=== PATIENT | female | born 1980 | race Caucasian/White ===

== ENCOUNTER 2021-07-25 10:13 | Emergency (ER) | payer SELFPAY ==
[~2021-07-25] VITALS: Ht 165.1 cm; Wt 72.5 kg
--- OUTSIDE RECORDS SUMMARY | 2021-07-25 10:25 | XMS REPORT | Continuity of Care Document ---
Author Author [facility] Organization [facility] Address [address] [place] [address] Phone Support Name Relationship Address Phone Felipe Perkins PRS [address] [place] [address] Adam Lukas PRS [address] [place] [address] Percy Gama PRS Unknown Unavailable TRIAGE, EMS PRS TO BE USED FOR WHEN PT AND EMS DOES ONLY TRIAGE, Unavailable Allergies, Adverse Reactions, Alerts Allergen Type Severity Reaction Last Updated Verified Status Sulfa (Sulfonamide Antibiotics) Allergy Unknown Anaphylaxis May 07, 2021 10:52pm Yes Active Medications Medication Status Dose Units Route Directions Qty Days Start Date End Date Instructions Venlafaxine Discontinued 75 MG PO DAILY August 31, 2020 9:47pm January 25, 2021 7:34pm Propranolol Active 60 MG PO DAILY AT BEDTIME August 31, 2020 9:47pm Hydroxyzine Hcl Discontinued 50 MG PO THREE TIMES A DAY August 31, 2020 9 :47pm April 10, 2021 12:10am Ferrous Sulfate Discontinued 325 MG PO TWICE A DAY August 31, 2020 9:47pm January 25, 2021 7:34pm Lisinopril Discontinued 40 MG PO DAILY September 01, 2020 12:13am April 10, 2021 12:10am Famotidine (Pepcid) 20 mg Tablet Active 20 MG PO TWICE A DAY May 07, 2021 11:1 8pm Ciprofloxacin Hcl Active 500 MG PO Q12H May 09, 2021 9:35am Potassium Chloride Active 20 MEQ PO TWICE A DAY 8 May 09, 2021 10:51am Diphenhydramine Hcl (Benadryl) 25 mg capsule Discontinued 25 MG PO THREE TIMES A DAY 30 7 February 28, 2020 12:31pm March 06, 2020 12:01am Prednisone Discontinued 20 MG PO DAILY 5 5 February 28, 2020 12:31pm March 04, 2020 12:01am Chlordiazepoxide Hcl Discontinued 0 MG PO Q6H November 06, 2020 1:38pm January 25, 2021 7:33pm Ondansetron Discontinued 4 MG PO Q8H 27 01November 06, 2020 1:38pm November 09, 2020 1:01am Cephalexin (Keflex) 500 mg capsule D iscontinued 500 MG PO TWICE A DAY November 06, 2020 1:45pm January 25, 2021 7:34pm Venlafaxine (Effexor Xr) 75 mg Capsule,Extended Releas e 24hr Active 75 MG PO DAILY January 25, 2021 7:32pm Problems Active Problems Medical Problem Onset Date Status Urinary tract infection Active Creatinine elevation A ctive Alcohol abuse Active Marijuana abuse Active Concussion Active Alcohol withdrawal Act kiersten Anxiety Active Rash Active Menstrual cramp Active Pancreatitis Active Prolonged QT interval Active Elevated liver enzymes Active Elevated liver enzymes Active Tobacco abuse Active Face lacerations Activ e Abnormal complete blood count Active Electrolyte abnormality Active Hypertension Active Fall Active Acute hyponatremia Act kiersten Inactive/Resolved Problems Medical Problem Onset Date Status Transaminitis Resolved Alcoholic intoxication Resolved Hypoglycemia Resolved Alcoholic ketoacidosis Resolved Hypomagnesemia Resolve d Procedures No procedure information available. Relevant Diagnostic Tests and/or Laboratory Data No known relevant diagnostic tests and/or laboratory data. Health Concerns Health Concerns may be documented in an alternate section. Advance Directives Advance Directive Response Recorded Date/Time Does the patient have an Advance Directive on File? No May 07, 2021 11:23pm Do you have a Medical Power of Survey Party Chief? N o May 07, 2021 11:23pm Do you have a Health Care Proxy? No May 07, 2021 11:23pm Do you have a Living Will? No May 07, 2021 11:23pm Chief Complaint and Reason for Visit Chief Complaint ems triage Encounters Encounter Location(s) Ar rival/Admit Date Discharge/Depart Date Provider(s) Departed Clinical [facility] July 01, 2021 12:58pm June 12:59pm TRIAGE EMS Assessments No Assessments Information Available Functional Status No Functional Status information available Goals Goals may be documented in an alternate section. 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 Home Phone: Payer Policy Id Coverage Id Subscriber's Name Subscriber Id Effective Date Expiration Date [place] [id number] Jessica Gaytan [id number] Self Pay Self N/A Social History Smoking Status Status Date of Observation Unknown if ever smoked May 08 10:44am Observation Status Observation Response Kee e of Response Smoking Status Every Day Smoker May 08, 2021 10:44am Exposure to Secondhand Smoke No May 08, 2021 10:44am Smoking packs per day 1 May 08, 2021 10:44am Alcohol Use None May 082020 10:44am Illicit Drug Use Yes [facility] 2020 10:44am Assigned Sex Female Vital Signs No vital signs result information available.
--- OUTSIDE RECORDS SUMMARY | 2021-07-25 10:25 | XMS REPORT | Continuity of Care Document ---
Author Author [facility] Organization [facility] Address [address] [place] [address] Phone Support Name Relationship Address Phone Felipe Perkins PRS [address] [place] [address] Adam Lukas PRS [address] [place] [address] Percy Gama PRS Unknown Unavailable TRIAGE, EMS [...] Do you have a Medical Power of Studio Assistant? N o May 07, 2021 11:23pm Do you have a Health Care Proxy? No May 07, 2021 11:23pm Do you have a Living Will? No May 07, 2021 11:23pm Chief Complaint and Reason for Visit Chief Complaint ems triage Encounters Encounter Location(s) Ar rival/Admit Date Discharge/Depart Date Provider(s) Departed Clinical [facility] July 01, 2021 12:58pm June 12:59pm TRIAGE EMS Assessments No Assessments Information Available Functional Status No Functional Status information available Goals Goals may be documented in an alternate section. 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 [address] [facility] [address] Contact Info. Home Phone: Payer Policy Id Coverage Id Subscriber's Name Subscriber Id Effective Date Expiration Date [place] [id number] Jessica Gaytan [id number] Self Pay Self N/A Social History Smoking [...] May 082020 10:44am Illicit Drug Use Yes [facility] 2020 10:44am Assigned Sex Female Vital Signs No vital signs result information available.
[2021-07-25] MEDS ORDERED: NS IV 500 ML 500 ML IV ONE (11:00)
--- NOTE | 2021-07-25 11:00 | ED General ---
General Chief Complaint: Substance Abuse Stated Complaint: DIARRHEA,SOB Source of Information: Patient, RN/MD (Dr. Jeaneth Miranda) Exam Limitations: No Limitations (EFFIE AQUINO) History of Present Illness Date Seen by Provider: Jul 25, 2021 Time Seen by Provider: 10:30 Initial Comments Patient to the ER by private conveyance from Dr. Miranda's clinic where she was attempting to perform outpatient alcohol withdrawal protocols and chief complaint of encephalopathy. Patient has complained of some generalized abdominal discomfort, distention, ascites, confusion for the past [address] Miranda noted that she is having difficulty staying awake and has a known history of alcoholic cirrhosis and spent some time at [facility] in [place] as well as [facility] in [place]. Patient denies any other significant medical history. She was tested recently and was negative for HIV and hepatitis. She has had some transaminases when she was seen 2 days ago on Friday by Dr. Miranda and was given a round of albumin because she felt that patient was intravascularly depleted as well she gave her some Lasix to try and help her remove some of her ascites. Patient states she does not take any laxatives such as lactulose or Xifaxan. She has been having diarrhea for the past 1 to 2 days. No fevers chills cough. She does feel like it is hard to get a deep breath in because of her abdominal distention. She was also given a dose of fluconazole for thrush and has been taking Ativan 2 mg every 4 hours [id number] with her last dose being sometime today. Patient is not oriented to date or time. She has had 1 dose of Covid vaccine Moderna in March. She also has a history of a gastric bypass in 1999. The patient states she relapsed drinking about 1 gallon of hard liquor every day approximately 2 months ago. The patient relates that she was told by her GI doctor at she had celiac's disease and he was investigating whether she had autoimmune hepatitis because every woman and her family her mom or grandmother etc. have all had autoimmune hepatitis. She was tested negative a few weeks ago for HIV and hepatitis. (EFFIE AQUINO) Allergies and Home Medications Allergies Coded Allergies: Sulfa (Sulfonamide Antibiotics) (Verified Allergy, Unknown, 07/25/21) Patient Home Medication List Home Medication List Reviewed: Yes (EFFIE AQUINO) Review of Systems Review of Systems Constitutional: No chills, No fever; malaise, weakness EENTM: No ear discharge, No ear pain Respiratory: No cough, No phlegm; short of breath Cardiovascular: No edema, No palpitations Gastrointestinal: No abdominal pain, No constipation, No diarrhea Genitourinary: No discharge, No dysuria Musculoskeletal: No back pain, No joint pain Skin: see HPI, change in color (Jaundice) (EFFIE AQUINO) All Other Systems Reviewed Negative Unless Noted: Yes (EFFIE AQUINO) Past Mrjgjqp-Vjwinx-Rorahj Hx Patient Social History Tobacco Use?: Yes Smoking Status: Current Everyday Smoker (Half pack per day) Smokeless Tobacco Frequency: Never a User Use of E-Cig and/or Vaping dev: No Substance use?: No Alcohol Use?: Yes Alcohol type: Hard Liquor Alcohol Frequency: Daily (EFFIE AQUINO) Physical Exam Vital Signs Vital Signs - First Documented 07/25/21 10:29 Temp 36.2 Pulse 110 Resp 20 B/P (MAP) 97/63 (74) Pulse Ox 100 O2 Delivery Room Air (ANGELA LESTER MD) Vital Signs Capillary Refill : (EFFIE AQUINO) Height, Weight, BMI Height: '" Weight: lbs. oz. kg; BMI Method: General Appearance: Chronically ill, Moderate Distress Eyes: Bilateral Eye Normal Inspection, Bilateral Eye PERRL, Bilateral Eye EOMI HEENT: PERRL/EOMI (Scleral icterus); No Pharynx Normal, No Moist Mucous Membranes Neck: Full Range of Motion, Non Tender Respiratory: Lungs Clear, Normal Breath Sounds, No Accessory Muscle Use, Respiratory Distress (Shallow, 25 to 30 breaths/min with oxygen saturations 100% on room air) Cardiovascular: Regular Rate, Rhythm, Normal Peripheral Pulses Gastrointestinal: Normal Bowel Sounds, Distended, Guarding (Right upper quadrant and epigastric region) Extremity: Normal Capillary Refill, Normal Inspection, No Pedal Edema Neurologic/Psychiatric: Alert, Oriented x3, No Motor/Sensory Deficits, Normal Mood/Affect Skin: Warm/Dry, Ecchymosis (Large ecchymoses over the left lower back and flank.), Jaundice (EFFIE AQUINO) Focused Exam Lactate Level 07/25/21 10:40: Lactic Acid Level 13.84*H 07/25/21 16:37: Lactic Acid Level 13.62*H (ANGELA LESTER MD) Lactic Acid Level Laboratory Tests Test 07/25/21 10:40 07/25/21 16:37 Lactic Acid Level 13.84 MMOL/L (0.50-2.00) *H 13.62 MMOL/L (0.50-2.00) *H (ANGELA LESTER MD) Progress/Results/Core Measures Suspected Sepsis SIRS Temperature: Pulse: Respiratory Rate: Laboratory Tests 07/25/21 10:40: White Blood Count 2.4L Blood Pressure / Mean: 07/25/21 10:40: Lactic Acid Level 13.84*H 07/25/21 16:37: Lactic Acid Level 13.62*H Laboratory Tests 07/25/21 10:40: Creatinine 1.39H, INR Comment 5.1*H, Platelet Count 17*L, Total Bilirubin 7.7H (EFFIE AQUINO) Results/Orders Lab Results Laboratory Tests Test 07/25/21 10:40 07/25/21 11:10 07/25/21 11:31 07/25/21 12:14 Range/Units White Blood Count 2.4 L 4.3-11.0 10^3/uL Red Blood Count 3.32 L 3.80-5.11 10^6/uL Hemoglobin 10.4 L 11.5-16.0 g/dL Hematocrit 30 L 35-52 % Mean Corpuscular Volume 92 80-99 fL Mean Corpuscular Hemoglobin 31 25-34 pg Mean Corpuscular Hemoglobin Concent 34 32-36 g/dL Red Cell Distribution Width 19.5 H 10.0-14.5 % Platelet Count 17 *L 130-400 10^3/uL Mean Platelet Volume 9.0-12.2 fL Immature Granulocyte % (Auto) 2 % Neutrophils (%) (Auto) 75 42-75 % Lymphocytes (%) (Auto) 13 12-44 % Monocytes (%) (Auto) 11 0-12 % Eosinophils (%) (Auto) 0 0-10 % Basophils (%) (Auto) 0 0-10 % Neutrophils # (Auto) 1.8 1.8-7.8 10^3/uL Lymphocytes # (Auto) 0.3 L 1.0-4.0 10^3/uL Monocytes # (Auto) 0.3 0.0-1.0 10^3/uL Eosinophils # (Auto) 0.0 0.0-0.3 10^3/uL Basophils # (Auto) 0.0 0.0-0.1 10^3/uL Immature Granulocyte # (Auto) 0.0 0.0-0.1 10^3/uL Percent Immature Platelet Fraction 8.1 H 0.0-7.6 % Prothrombin Time 47.2 *H 12.2-14.7 SEC INR Comment 5.1 *H 0.8-1.4 Activated Partial Thromboplast Time 50 H 24-35 SEC Sodium Level 136 135-145 MMOL/L Potassium Level 3.0 L 3.6-5.0 MMOL/L Chloride Level 100 98-107 MMOL/L Carbon Dioxide Level 11 L 21-32 MMOL/L Anion Gap 25 H 5-14 MMOL/L Blood Urea Nitrogen 10 7-18 MG/DL Creatinine 1.39 H 0.60-1.30 MG/DL Estimat Glomerular Filtration Rate 42 BUN/Creatinine Ratio 7 Glucose Level 32 *L 70-105 MG/DL Lactic Acid Level 13.84 *H 0.50-2.00 MMOL/L Calcium Level 8.0 L 8.5-10.1 MG/DL Corrected Calcium 8.9 8.5-10.1 MG/DL Total Bilirubin 7.7 H 0.1-1.0 MG/DL Aspartate Amino Transf (AST/SGOT) 4901 H 5-34 U/L Alanine Aminotransferase (ALT/SGPT) 623 H 0-55 U/L Alkaline Phosphatase 201 H 40-136 U/L Ammonia 149 H 11-32 UMOL/L C-Reactive Protein High Sensitivity 3.64 H 0.00-0.50 MG/DL Total Protein 6.1 L 6.4-8.2 GM/DL Albumin 2.9 L 3.2-4.5 GM/DL Serum Alcohol < 10 <10 MG/DL Urine Color MARILOU H Urine Clarity CLOUDY Urine pH 5.5 5-9 Urine Specific Webb 1.025 H 1.016-1.022 Urine Protein 2+ H NEGATIVE Urine Glucose (UA) TRACE H NEGATIVE Urine Ketones TRACE H NEGATIVE Urine Nitrite POSITIVE H NEGATIVE Urine Bilirubin 3+ H NEGATIVE Urine Urobilinogen 2.0 < = 1.0 MG/DL Urine Leukocyte Esterase 2+ H NEGATIVE Urine RBC (Auto) 1+ H NEGATIVE Urine RBC 5-10 H /HPF Urine WBC TNTC H /HPF Urine Squamous Epithelial Cells 5-10 /HPF Urine Renal Epithelial Cells 5-10 /HPF Urine Crystals NONE /LPF Urine Bacteria LARGE H /HPF Urine Casts NONE /LPF Urine Mucus NEGATIVE /LPF Urine Culture Indicated YES Blood Gas Puncture Site RT RAD Blood Gas Patient Temperature 36.2 Arterial Blood pH 7.45 H 7.37-7.43 Arterial Blood Partial Pressure CO2 13 *L 35-45 MMHG Arterial Blood Partial Pressure O2 108 H 79-93 MMHG Arterial Blood HCO3 9 *L 23-27 MMOL/L Arterial Blood Total CO2 9.3 *L 21.0-31.0 MMOL/L Arterial Blood Oxygen Saturation 99 94-100 % Arterial Blood Base Excess -15.0 L -2.5-2.5 MMOL/L Imtiaz Test YES-POS Blood Gas Ventilator Setting NO Blood Gas Inspired Oxygen ROOM AIR Glucometer 126 H 70-110 MG/DL Test 07/25/21 16:37 07/25/21 16:53 07/25/21 18:23 Range/Units Lactic Acid Level 13.62 *H 0.50-2.00 MMOL/L Glucometer 91 85 70-110 MG/DL (ANGELA LESTER MD) My Orders Orders - ANGELA LESTER MD D50w (Emergency) Syringe (Dextrose 50% 5 (07/25/21 18:45) (ANGELA LESTER MD) Medications Given in ED Current Medications Medications Dose Ordered Sig/Mini Route Start Time Stop Time Status Last Admin Dose Admin Cefepime HCl 1000 mg/Sterile Water 10 ml @ 200 mls/hr ONCE ONCE IV 07/25/21 12:15 07/25/21 12:42 DC 07/25/21 13:51 200 MLS/HR Dextrose 25 ml ONCE ONCE IV 07/25/21 18:45 07/25/21 18:46 DC 07/25/21 18:47 25 ML Dextrose 50 ml ONCE ONCE IV 07/25/21 11:30 07/25/21 11:31 DC 07/25/21 11:30 50 ML Folic Acid 1 mg ONCE ONCE IV 07/25/21 11:30 07/25/21 11:32 DC 07/25/21 13:31 1 MG Lactulose 10 gm ONCE ONCE PO 07/25/21 14:00 07/25/21 14:01 DC 07/25/21 14:31 10 GM Prothrombin Complex Concent (Human) 1,500 unit ONCE ONCE IV 07/25/21 12:15 07/25/21 12:16 DC 07/25/21 12:46 1,500 UNIT Rifaximin 550 mg ONCE ONCE PO 07/25/21 14:00 07/25/21 14:01 DC 07/25/21 14:29 550 MG Sodium Chloride 250 ml @ ud STK-MED ONCE .ROUTE 07/25/21 13:18 07/25/21 13:20 DC 07/25/21 13:33 30 MLS/HR Sodium Chloride 500 ml @ 0 mls/hr Q0M ONCE IV 07/25/21 11:00 07/25/21 11:01 DC 07/25/21 11:30 500 MLS/HR Vancomycin HCl 1250 mg/Sodium Chloride 250 ml @ 210 mls/hr ONCE ONCE IV 07/25/21 12:15 07/25/21 13:26 DC 07/25/21 13:37 210 MLS/HR (ANGELA LESTER MD) Vital Signs/I&O 07/25/21 07/25/21 07/25/21 07/25/21 10:29 13:26 13:41 15:37 Temp 36.2 36.6 36.3 36.0 Pulse 110 90 88 95 Resp 20 18 18 18 B/P (MAP) 97/63 (74) 103/75 104/74 95/63 Pulse Ox 100 100 100 99 O2 Delivery Room Air Room Air Room Air 07/25/21 07/25/21 18:30 18:55 Temp 36.7 Pulse 93 92 Resp 13 B/P (MAP) 96/58 93/57 Pulse Ox 100 O2 Delivery Room Air (ANGELA LESTER MD) Vital Signs/I&O Capillary Refill : (EFFIE AQUINO) Progress Note #1: Time: 11:00 Progress Note Suspect hepatic encephalopathy. We will get an ammonia level and since she has a soft blood pressure we will give her 500 cc aliquot of normal saline. We will get urine sample from a Merida catheter. We will also look for evidence of infection. Progress Note #2: Time: 11:25 Progress Note Patient's platelets are 17,000. She does not have any overt evidence of bleeding so she does not need a prophylactic transfusion yet however we do need a central line because of her soft blood pressure and as prophylaxis for further bleeding. With her INR 5.1 she is likely to have a lot of bleeding. Progress Note #3: Time: 13:16 Progress Note Meld score 36 with greater than 50% mortality at 3 months. Patient is an acute fulminant liver failure, septic shock as evidenced by elevated lactate and multiorgan dysfunction. UTI seems to be the source. Dr. Franco has graciously agreed to try and do a paracentesis for patient's discomfort. We will give her 2 mg of morphine for her discomfort right now. She is been given cefepime and vancomycin as well as a 500 cc bolus of fluids but her superior vena cava was very full on ultrasound. Her blood pressures been hanging out around 100 systolic. Patient is mentating and while she is not oriented to the day of the week she is oriented to place situation and person and does not have seem to have any other short-term memory issues outside of slowed mentation probably owed to the severely elevated ammonia. Plan to give her some lactulose and rifaximin. We did discuss goals of care with her and had a prolonged greater than 10-minute conversation about possibilities of going with comfort care versus what we could offer her. Her primary care team has already spoke to us when they transferred the patient over stating that she needs to go to or some tertiary center that they did not prefer to admit her since we do not have GI available to consult. Patient acknowledges this and states that she still wants to go to a tertiary center and desires to go to if possible since she has been seen there before. Lactulose and rifaximin ordered. Low protein meal ordered. Progress Note #4: Time: 16:10 Progress Note Patient is having a bowel movement. She got another 2 mg of morphine for her pain. CT unremarkable for acute processes. [place] control still working on placement. Dr. Franco to the bedside and after reviewing on ultrasound at bedside he does not feel she has enough fluid to warrant a paracentesis. Progress Note #5: Time: 17:16 Progress Note The patient's blood pressure has continued to dwindle and we tried repositioning her and changing the cuff and it is still 87/68 which is rather narrow. Give her a liter of fluids and if that does not help we will initiate pressors. (EFFIE AQUINO) Progress Note : Time: 18:55 Progress Note I assumed care of this patient just prior to transfer. Transfer arrangements had already been made for [facility]. Patient was mildly hypotensive and Levophed was initiated as her IV fluids were finishing. She was also found to have a blood sugar of 85 just prior to transfer. 25 g of D50 was administered to help support her blood sugar in route. Levophed adjustment was discussed with EMS prior to departure. (ANGELA LESTER MD) Diagnostic Imaging Diagonstic Imaging: Xray Plain Films/CT/US/NM/MRI: chest Comments [facility], [place] NAME: FRANCISCO ZAYAS [facility] REC#: [id number] PT STATUS: REG ER : 1980 PHYSICIAN: EFFIE AQUINO MD ADMIT DATE: 07/25/21/ER Draft Date of Exam:07/25/21 CHEST 1 VIEW, AP/PA ONLY INDICATION: sepsis. TECHNIQUE: Single view chest 11:19 AM. CORRELATION STUDY: None FINDINGS: The heart size, mediastinal configuration and pulmonary vascularity are within normal limits. Asymmetrically elevated right diaphragm. Lung nuno demonstrate no consolidating infiltrate. No effusion. Multiple surgical clips scattered throughout the upper abdomen. IMPRESSION: 1. Negative for acute abnormality of the chest. Dictated on workstation # [id number] Dict: 07/25/21 1118 Trans: 07/25/21 1119 DO [id number] Interpreted by: ZHANNA LOVE DO Electronically signed by: Reviewed: Reviewed by Me Diagonstic Imaging: CT Plain Films/CT/US/NM/MRI: abdomen, pelvis Comments [facility] [place] [place] NAME: FRANCISCO ZAYAS [facility] REC#: [id number] PT STATUS: REG ER : 1980 PHYSICIAN: EFFIE AQUINO MD ADMIT DATE: 07/25/21/ER Signed Date of Exam:07/25/21 CT ABDOMEN/PELVIS WO PROCEDURE: CT abdomen and pelvis without contrast. TECHNIQUE: Multiple contiguous axial images were obtained through the abdomen and pelvis without the use of intravenous contrast. Auto Exposure Controls were utilized during the CT exam to meet ALARA standards for radiation dose reduction. DATE: July 25, 2021. COMPARISON: None. INDICATION: 40-year-old female, left abdominal bruising. FINDINGS: There are limitations for evaluation of the abdominal organs, neoplastic processes, abscess, and limited evaluation of the vasculature relating to the lack of intravenous contrast. The visualized portions of the lung bases are clear. The heart is not enlarged. There is no pericardial effusion. There is prominent diffuse fatty infiltration of the liver. The outer liver contours are not nodular. The patient is status post cholecystectomy. There is no identified biliary ductal dilation. The main pancreatic duct is not grossly dilated. Limited noncontrast evaluation of the pancreatic parenchyma is unremarkable. The spleen is normal in size. The adrenal glands are unremarkable. Limited noncontrast assessment of the renal parenchyma is unremarkable. The urinary collecting systems are not distended. There is a Merida catheter within a collapsed urinary bladder. There are post operative changes at the level of the gastroesophageal junction. There is no free intraperitoneal air. There is no drainable fluid collection. There is moderate volume ascites. The ascites is low in attenuation. There is no evidence of hemoperitoneum. There is no identified area of sizable hemorrhage or hematoma. There are atherosclerotic calcifications. There are post operative changes of the lower lumbar spine. There are degenerative changes of the spine. There is no acute bony abnormality. IMPRESSION: 1. Moderate volume ascites which is low in attenuation. No evidence of hemoperitoneum or identified sizable hematoma. 2. Prominent diffuse fatty infiltration of the liver. Dictated by: Dictated on workstation # [id number] Dict: 07/25/21 1540 Trans: 07/25/21 1559 [id number] Interpreted by: ZAINA HERNANDEZ MD Electronically signed by: ZAINA HERNANDEZ MD 07/25/21 7042 Reviewed: Reviewed by Me (EFFIE AQUINO) Consults Consults : Consulting Physician: REDDY FRANCO DO Consults Notes Discussed case with Dr. Franco, general surgery and he agrees to come look with an ultrasound and see if he can do a paracentesis to relieve some of the patient's discomfort (EFFIE AQUINO) Departure Impression Primary Impression: Septic shock Additional Impressions: UTI (urinary tract infection) Qualified Codes: N30.01 - Acute cystitis with hematuria Hepatic encephalopathy in fulminant hepatic failure Disposition: XFER SHT-TRM HOSP Condition: Stable Transfer Transfer Reason: Exceeds level of care (No GI) Time Spoke to Accepting Phy: 17:45 Transfer Progress Notes [place] triage nurse from [facility] called and Dr. Alondra Gee, hepatology accepting. Transfer Facility: [facility] Method of Transfer: EMS ([facility]) (EFFIE AQUINO) Transfer Time: 18:55 (ANGELA LESTER MD) Departure-Patient Inst. Referrals: JEANETH MIRANDA MD (PCP/Family) Primary Care Physician Patient Instructions: ALCOHOL AND SUBSTANCE ABUSE EFFIE AQUINO Jul 25, 2021 11:00 ANGELA LESTER MD Jul 25, 2021 19:32
[2021-07-25 11:09] LABS: BASOPHILS % (AUTO) 0 % (0-10); EOSINOPHILS % (AUTO) 0 % (0-10); HEMOGLOBIN 10.4 g/dL (11.5-16.0)
[2021-07-25 11:11] LABS: ALBUMIN 2.9 GM/DL (3.2-4.5); HEMATOCRIT 30 % (35-52); LYMPHOCYTES # (AUTO) 0.3 10^3/uL (1.0-4.0); LYMPHOCYTES % (AUTO) 13 % (12-44); MEAN CORPUSCULAR HEMOGLOBIN 31 pg (25-34); MEAN CORPUSCULAR HGB CONC 34 g/dL (32-36); MEAN CORPUSCULAR VOLUME 92 fL (80-99); MONOCYTES # (AUTO) 0.3 10^3/uL (0.0-1.0); MONOCYTES % (AUTO) 11 % (0-12); NEUTROPHILS # (AUTO) 1.8 10^3/uL (1.8-7.8); NEUTROPHILS % (AUTO) 75 % (42-75); WHITE BLOOD COUNT 2.4 10^3/uL (4.3-11.0)
[2021-07-25 11:14] LABS: TOTAL PROTEIN 6.1 GM/DL (6.4-8.2)
[2021-07-25 11:16] LABS: BILIRUBIN,TOTAL 7.7 MG/DL (0.1-1.0)
[2021-07-25 11:17] LABS: CREATININE SERUM 1.39 MG/DL (0.60-1.30)
[2021-07-25 11:18] LABS: BILIRUBIN,URINE 3+ (NEGATIVE); CLARITY,URINE CLOUDY; COLOR,URINE AMBER; GLUCOSE, URINE (UA) TRACE (NEGATIVE); KETONES,URINE TRACE (NEGATIVE); LEUKOCYTE ESTERASE ,URINE 2+ (NEGATIVE); NITRITE,URINE POSITIVE (NEGATIVE); PH,URINE 5.5 (5-9); PROTEIN,URINE 2+ (NEGATIVE)
--- NOTE | 2021-07-25 11:19 | Diagnostic Imaging Report ---
INDICATION: sepsis. TECHNIQUE: Single view chest 11:19 AM. CORRELATION STUDY: None FINDINGS: The heart size, mediastinal configuration and pulmonary vascularity are within normal limits. Asymmetrically elevated right diaphragm. Lung nuno demonstrate no consolidating infiltrate. No effusion. Multiple surgical clips scattered throughout the upper abdomen. IMPRESSION: 1. Negative for acute abnormality of the chest. Dictated by: Dictated on workstation # [id number]
[2021-07-25 11:22] LABS: INR 5.1 (0.8-1.4); PROTHROMBIN TIME PATIENT 47.2 SEC (12.2-14.7)
[2021-07-25 11:26] LABS: PLATELET COUNT 17 10^3/uL (130-400)
[2021-07-25] MEDS ORDERED: DEXTROSE 50% 50 ML (IMS) SYR IV ONE ×2 (11:30→18:45)
[2021-07-25] MEDS ORDERED: DEXTROSE 50% 50 ML (IMS) SYR ONE (11:30)
[2021-07-25] MEDS ORDERED: THIAMINE 100 MG/ML 2 ML (VITAMIN B-1) VIAL IV ONE (11:30)
[2021-07-25] MEDS ORDERED: FOLIC ACID 5MG/ML 10 ML IV ONE (11:30)
[2021-07-25 11:34] LABS: BACTERIA,URINE LARGE /HPF; WBC,URINE TNTC /HPF
[2021-07-25 11:42] LABS: ABG OXYGEN SATURATION 99 % (94-100); ABG PH 7.45 (7.37-7.43); ABG PO2 108 MMHG (79-93)
[2021-07-25] MEDS ORDERED: DEXTROSE 40% ORAL GEL 37.5 ML TUBE PO ONE (11:45)
[2021-07-25 11:47] LABS: ABG PCO2 13 MMHG (35-45)
[2021-07-25 11:48] LABS: ABG TCO2 9.3 MMOL/L (21.0-31.0); ALLENS TEST YES-POS; INSPIRED O2 ROOM AIR; PATIENT TEMP 36.2; VENTILATOR NO
[2021-07-25] MEDS ORDERED: CEFEPIME INJECTION 1,000 MG in WATER (STERILE) FOR INJECTION 10 ML IV ONE (12:15)
[2021-07-25] MEDS ORDERED: HUMAN PROTHROMBIN COMPLX(PCC) 500 UNIT (KCENTRA) IV ONE (12:15)
[2021-07-25] MEDS ORDERED: VANCOMYCIN INJECTION 1,250 MG in NS (IVPB) 250 ML IV ONE (12:15)
--- NOTE | 2021-07-25 12:18 | Diagnostic Imaging Report ---
INDICATION: Sepsis and central venous catheter placement. FINDINGS: AP view of the chest is obtained. Since study of earlier in the day, there has been placement of right jugular central venous catheter with tip projecting over the upper superior vena cava. There is no evidence of pneumothorax. No consolidation or pleural fluid is seen. Surgical henrik are seen in the upper abdomen. IMPRESSION: No evidence of acute abnormality or complication. Dictated by: Dictated on workstation # [id number]
[2021-07-25] MEDS ORDERED: morphine INJ 10 MG/ML 1ML (SYR OR VIAL) IVP STA ×2 (13:00→16:00)
[2021-07-25] MEDS ORDERED: NS (IVPB) 250 ML ONE (13:18)
[2021-07-25 13:26] VITALS: BP 103/75
[2021-07-25 13:41] VITALS: BP_SYST 104; BP_SYST 105; BP_DIAS 72; BP_DIAS 74
[2021-07-25] MEDS ORDERED: LACTULOSE SYRUP 10GM/15ML (ENULOSE) 30ML UDC PO ONE (14:00)
[2021-07-25] MEDS ORDERED: RIFAXIMIN 550 MG TABLET (XIFAXAN) PO ONE (14:00)
[2021-07-25 15:37] VITALS: BP 95/63
--- NOTE | 2021-07-25 15:59 | Diagnostic Imaging Report ---
PROCEDURE: CT abdomen and pelvis without contrast. TECHNIQUE: Multiple contiguous axial images were obtained through the abdomen and pelvis without the use of intravenous contrast. Auto Exposure Controls were utilized during the CT exam to meet ALARA standards for radiation dose reduction. DATE: July 25, 2021. COMPARISON: None. INDICATION: 40-year-old female, left abdominal bruising. FINDINGS: There are limitations for evaluation of the abdominal organs, neoplastic processes, abscess, and limited evaluation of the vasculature relating to the lack of intravenous contrast. The visualized portions of the lung bases are clear. The heart is not enlarged. There is no pericardial effusion. There is prominent diffuse fatty infiltration of the liver. The outer liver contours are not nodular. The patient is status post cholecystectomy. There is no identified biliary ductal dilation. The main pancreatic duct is not grossly dilated. Limited noncontrast evaluation of the pancreatic parenchyma is unremarkable. The spleen is normal in size. The adrenal glands are unremarkable. Limited noncontrast assessment of the renal parenchyma is unremarkable. The urinary collecting systems are not distended. There is a Merida catheter within a collapsed urinary bladder. There are post operative changes at the level of the gastroesophageal junction. There is no free intraperitoneal air. There is no drainable fluid collection. There is moderate volume ascites. The ascites is low in attenuation. There is no evidence of hemoperitoneum. There is no identified area of sizable hemorrhage or hematoma. There are atherosclerotic calcifications. There are post operative changes of the lower lumbar spine. There are degenerative changes of the spine. There is no acute bony abnormality. IMPRESSION: 1. Moderate volume ascites which is low in attenuation. No evidence of hemoperitoneum or identified sizable hematoma. 2. Prominent diffuse fatty infiltration of the liver. Dictated by: Dictated on workstation # [id number]
--- NOTE | 2021-07-25 16:02 | Consultation - Surgery ---
ALE HARRIS 07/25/21 1601: History of Present Illness History of Present Illness Patient Consulted On(tian/time) 07/25/21 15:56 Date Seen by Provider: Jul 25, 2021 Time Seen by Provider: 15:30 Reason for Visit: Abdominal Pain History of Present Illness Patient is a 40 y/o female in the ER with abdominal pain and fulminant liver failure. Surgery was consulted for a possible paracentesis. Patient reports the pain in her abdomen began around May. She says it is tender all over her abdomen. She says 2 weeks ago the swelling and pain got worse. She says laying down makes it better and leaning to one side will make it worse. She reports the pain as a 10/10. She says it is constant and does not change at all. She has a history of Celiac disease and alcoholism. She has a family history of autoimmune hepatitis. Allergies and Home Medications Allergies Coded Allergies: Sulfa (Sulfonamide Antibiotics) (Verified Allergy, Unknown, 07/25/21) Past Welohkf-Iglwli-Ycdugr Hx Patient Social History Smoking Status: Current Everyday Smoker (Half pack per day) Alcohol Use?: Yes Have you traveled recently?: No Gastrointestinal History of Gastrointestinal Di: Yes (Celiac) Family Medical History Significant Family History: Other Conditions/Hx (Autoimmune hepatitis in mother) Review of Systems-General Gastrointestinal: RUQ, LUQ, RLQ, LLQ, abdominal pain Skin: change in color Physical Exam-General Problems Physical Exam Vital Signs Vital Signs - First Documented 07/25/21 10:29 Temp 36.2 Pulse 110 Resp 20 B/P (MAP) 97/63 (74) Pulse Ox 100 O2 Delivery Room Air Capillary Refill : General Appearance: moderate distress Eyes: Bilateral Eye Scleral Icterus HEENT: scleral icterus (R), scleral icterus (L) Respiratory: normal breath sounds Cardiovascular: regular rate, rhythm Gastrointestinal: abnormal bowel sounds, distended, tenderness Skin: jaundice Data Review Labs Laboratory Tests 07/25/21 10:40: White Blood Count 2.4L, Red Blood Count 3.32L, Hemoglobin 10.4L, Hematocrit 30L, Mean Corpuscular Volume 92, Mean Corpuscular Hemoglobin 31, Mean Corpuscular Hemoglobin Concent 34, Red Cell Distribution Width 19.5H, Platelet Count 17*L, Mean Platelet Volume , Immature Granulocyte % (Auto) 2, Neutrophils (%) (Auto) 75, Lymphocytes (%) (Auto) 13, Monocytes (%) (Auto) 11, Eosinophils (%) (Auto) 0, Basophils (%) (Auto) 0, Neutrophils # (Auto) 1.8, Lymphocytes # (Auto) 0.3L, Monocytes # (Auto) 0.3, Eosinophils # (Auto) 0.0, Basophils # (Auto) 0.0, Immature Granulocyte # (Auto) 0.0, Percent Immature Platelet Fraction 8.1H, Prothrombin Time 47.2*H, INR Comment 5.1*H, Activated Partial Thromboplast Time 50H, Sodium Level 136, Potassium Level 3.0L, Chloride Level 100, Carbon Dioxide Level 11L, Anion Gap 25H, Blood Urea Nitrogen 10, Creatinine 1.39H, Estimat Glomerular Filtration Rate 42, BUN/Creatinine Ratio 7, Glucose Level 32*L, Lactic Acid Level 13.84*H, Calcium Level 8.0L, Corrected Calcium 8.9, Total Bilirubin 7.7H, Aspartate Amino Transf (AST/SGOT) 4901H, Alanine Real otransferase (ALT/SGPT) 623H, Alkaline Phosphatase 201H, Ammonia 149H, C- Reactive Protein High Sensitivity 3.64H, Total Protein 6.1L, Albumin 2.9L, Serum Alcohol < 10 07/25/21 11:10: Urine Color AMBERH, Urine Clarity CLOUDY, Urine pH 5.5, Urine Specific Anna 1.025H, Urine Protein 2+H, Urine Glucose (UA) TRACEH, Urine Ketones TRACEH, Urine Nitrite POSITIVEH, Urine Bilirubin 3+H, Urine Urobilinogen 2.0, Urine Leukocyte Esterase 2+H, Urine RBC (Auto) 1+H, Urine RBC 5-10H, Urine WBC TNTCH, Urine Squamous Epithelial Cells 5-10, Urine Renal Epithelial Cells 5-10, Urine Crystals NONE, Urine Bacteria LARGEH, Urine Casts NONE, Urine Mucus NEGATIVE, Urine Culture Indicated YES 07/25/21 11:31: Blood Gas Puncture Site RT RAD, Blood Gas Patient Temperature 36.2, Arterial Blood pH 7.45H, Arterial Blood Partial Pressure CO2 13*L, Arterial Blood Partial Pressure O2 108H, Arterial Blood HCO3 9*L, Arterial Blood Total CO2 9.3*L, Arterial Blood Oxygen Saturation 99, Arterial Blood Base Excess -15.0L, Imtiaz Test YES-POS, Blood Gas Ventilator Setting NO, Blood Gas Inspired Oxygen ROOM AIR 07/25/21 12:14: Glucometer 126H Assessment/Plan Assessment/Plan Assessment/Plan 1. Fulminant liver failure 2. Alcoholism 3. Family history of autoimmune hepatitis 1. Surgery was consulted to do paracentesis. CT showed minimal abdominal fluid. Decided not to do procedure. REDDY FRANCO DO 07/25/21 1806: History of Present Illness History of Present Illness Time Seen by Provider: 15:54 History of Present Illness Surgery asked to consult regarding abdominal distention, liver failure and ascites. HPI per ED: Patient to the ER by private conveyance from Dr. King's clinic where she was attempting to perform outpatient alcohol withdrawal protocols and chief complaint of encephalopathy. Patient has complained of some generalized abdominal discomfort, distention, ascites, confusion for the past [address] King noted that she is having difficulty staying awake and has a known history of alcoholic cirrhosis and spent some time at [facility] in [place] as well as [facility] in [place]. Patient denies any other significant medical history. She was tested recently and was negative for HIV and hepatitis. She has had some transaminases when she was seen 2 days ago on Friday by Dr. King and was given a round of albumin because she felt that patient was intravascularly depleted as well she gave her some Lasix to try and help her remove some of her ascites. Patient states she does not take any laxatives such as lactulose or Xifaxan. She has been having diarrhea for the past 1 to 2 days. No fevers chills cough. She does feel like it is hard to get a deep breath in because of her abdominal distention. She was also given a dose of fluconazole for thrush and has been taking Ativan 2 mg every 4 hours [id number] with her last dose being sometime today. Patient is not oriented to date or time. She has had 1 dose of Covid vaccine Moderna in March. She also has a history of a gastric bypass in 1999. The patient states she relapsed drinking about 1 gallon of hard liquor every day approximately 2 months ago. The patient relates that she was told by her GI doctor at she had celiac's disease and he was investigating whether she had autoimmune hepatitis because every woman and her family her mom or grandmother etc. have all had autoimmune hepatitis. She was tested negative a few weeks ago for HIV and hepatitis. When I saw her; Pt is a poor historian and very confused, the most she can do is complain of pain. Pain is in her abdomen, but also all over. Does complain of swelling. Allergies and Home Medications Allergies Coded Allergies: Sulfa (Sulfonamide Antibiotics) (Verified Allergy, Unknown, 07/25/21) Patient Home Medication List Home Medication List Reviewed: Yes Past Mejjlmx-Ekpfkc-Qfdyce Hx Patient Social History Smoking Status: Current Everyday Smoker Cigarettes Per Day: 10 Type Used: Cigarettes Alcohol Use?: Yes (1 liter per day) Surgeries History of Surgeries: Yes Surgeries: Abdominal (gastric bypass), Gallbladder, Orthopedic (spinal surgery) Respiratory History of Respiratory Disorde: No Cardiovascular History of Cardiac Disorders: No Neurological Neurological Disorders: Headaches /Migraines, Neuropathy Gastrointestinal History of Gastrointestinal Di: Yes (Celiac) Gastrointestinal Disorders: Gastroesophageal Reflux, Liver Disease/Jaundice Musculoskeletal History of Musculoskeletal Dis: Yes Musculoskeletal Disorders: Chronic Back Pain, Spasms Family Medical History Significant Family History: Other Conditions/Hx (Autoimmune hepatitis in mother) Review of Systems-General Constitutional: malaise, weakness EENTM: dental problems, throat pain; No epistaxis Respiratory: No hemoptysis; short of breath Cardiovascular: No chest pain, No palpitations Gastrointestinal: RUQ, LUQ, RLQ, LLQ, abdominal pain, nausea; No vomiting Genitourinary: No dysuria, No frequency, No hematuria Skin: change in color Psychiatric/Neurological: Numbness, Paresthesia Physical Exam-General Problems Physical Exam General Appearance: moderate distress, cachetic Eyes: Bilateral Eye PERRL, Bilateral Eye EOMI HEENT: scleral icterus (R), scleral icterus (L), other (poor dentition) Neck: non-tender, supple Respiratory: normal breath sounds, no respiratory distress, no accessory muscle use Cardiovascular: regular rate, rhythm, no murmur Gastrointestinal: abnormal bowel sounds, distended, tenderness, hepatomegaly, spleenomegaly Extremities: calf tenderness, pedal edema Neurologic/Psychiatric: disoriented x 3 Skin: warm/dry, jaundice Data Review Radiology Date of Exam:07/25/21 CT ABDOMEN/PELVIS WO PROCEDURE: CT abdomen and pelvis without contrast. TECHNIQUE: Multiple contiguous axial images were obtained through the abdomen and pelvis without the use of intravenous contrast. Auto Exposure Controls were utilized during the CT exam to meet ALARA standards for radiation dose reduction. DATE: July 25, 2021. COMPARISON: None. INDICATION: 40-year-old female, left abdominal bruising. FINDINGS: There are limitations for evaluation of the abdominal organs, neoplastic processes, abscess, and limited evaluation of the vasculature relating to the lack of intravenous contrast. The visualized portions of the lung bases are clear. The heart is not enlarged. There is no pericardial effusion. There is prominent diffuse fatty infiltration of the liver. The outer liver contours are not nodular. The patient is status post cholecystectomy. There is no identified biliary ductal dilation. The main pancreatic duct is not grossly dilated. Limited noncontrast evaluation of the pancreatic parenchyma is unremarkable. The spleen is normal in size. The adrenal glands are unremarkable. Limited noncontrast assessment of the renal parenchyma is unremarkable. The urinary collecting systems are not distended. There is a [place] catheter within a collapsed urinary bladder. There are post operative changes at the level of the gastroesophageal junction. There is no free intraperitoneal air. There is no drainable fluid collection. There is moderate volume ascites. The ascites is low in attenuation. There is no evidence of hemoperitoneum. There is no identified area of sizable hemorrhage or hematoma. There are atherosclerotic calcifications. There are post operative changes of the lower lumbar spine. There are degenerative changes of the spine. There is no acute bony abnormality. IMPRESSION: 1. Moderate volume ascites which is low in attenuation. No evidence of hemoperitoneum or identified sizable hematoma. 2. Prominent diffuse fatty infiltration of the liver. Dictated by: Dictated on workstation # [id number] Dict: 07/25/21 1540 Trans: 07/25/21 1559 [id number] Interpreted by: ZAINA HERNANDEZ MD Electronically signed by: ZAINA HERNANDEZ MD 07/25/21 1559 Assessment/Plan Assessment/Plan Assessment/Plan 1. Fulminant liver failure 2. Alcoholism 3. Family history of autoimmune hepatitis 4. Ascites 5. Elevated Ammonia 6. Hypokalemia, Acute Renal failure, Coagulopathy Surgery was consulted regarding abdominal distention, liver failure and jaundice; possible paracentesis. However, CT showed minimal abdominal fluid; not enough to drain safely and in addition she has a coagulopathy (which makes her a very poor surgical candidate). She is being transferred to tertiary center. Supervisory-Addendum Brief Verification & Attestation Participated in pt care: history, MDM, physical Personally performed: exam, history, MDM, supervision of care Care discussed with: Medical Student Procedures: n/a Verification and Attestation of Medical Student E/M Service A medical student performed and documented this service. I then reviewed and verified all information documented by the medical student and made modifications to such information, when appropriate. I personally performed a physical exam, medical decision making and then discussed any differences between the notes and made revisions as necessary to create one note. Reddy Franco , 07/25/21 , 18:17 ALE HARRIS Jul 25, 2021 16:01 REDDY FRANCO DO Jul 25, 2021 18:06
[2021-07-25] MEDS ORDERED: NS IV 1000 ML 1,000 ML ONE (17:17)
[2021-07-25] MEDS ORDERED: NS IV 1000 ML 1,000 ML IV SCH (17:30)
[2021-07-25] MEDS ORDERED: NOREPINEPHRINE 8 MG/250 ML 250 ML IV SCH (18:15)
[2021-07-25 18:55] VITALS: BP 93/57
== END 2021-07-25 18:55 | disposition short-term general hospital (02) ==
LOC: ER 10:18
DX: S30.0XXA Contusion of lower back and pelvis, initial encounter (principal); R65.21 Severe sepsis with septic shock; N39.0 Urinary tract infection, site not specified; K72.90 Hepatic failure, unspecified without coma; F17.210 Nicotine dependence, cigarettes, uncomplicated; X58.XXXA Exposure to other specified factors, initial encounter
CPT/HCPCS: 36556; 36600; 51702; 71045; 74176; 80053; 81000; 82140; 82805; 82947; 83605; 85025; 85610; 85730; 86141; 86850; 86900; 86901; 87040; 87077; 87088; 87186; 96361; 96365; 96367; 96375; 96376; 99291; 99292; G0480; P9035; 36415; 80320